=== PATIENT | female | born 1990 ===

== ENCOUNTER → 2020-08-28 | Outpatient (CLI) | payer OTHER | END | disposition home or self-care (01) | LOC: PRENATAL 08:44 | PROVIDERS: ATTEND Obstetrics & Gynecology Maternal & Fetal Medicine | DX: O35.0XX1 Maternal care for (suspected) central nervous system malformation in fetus, fetus 1 (principal); O35.3XX1 Maternal care for (suspected) damage to fetus from viral disease in mother, fetus 1; O98.512 Other viral diseases complicating pregnancy, second trimester; O99.212 Obesity complicating pregnancy, second trimester; O34.42 Maternal care for other abnormalities of cervix, second trimester; O99.342 Other mental disorders complicating pregnancy, second trimester; Z36.89 Encounter for other specified antenatal screening; Z3A.23 23 weeks gestation of pregnancy ==

== ENCOUNTER → 2020-11-07 | Outpatient (CLI) | payer OTHER | END | disposition home or self-care (01) | LOC: PRENATAL 16:04 | PROVIDERS: ATTEND Obstetrics & Gynecology Maternal & Fetal Medicine | DX: O26.843 Uterine size-date discrepancy, third trimester (principal); O35.0XX1 Maternal care for (suspected) central nervous system malformation in fetus, fetus 1; Z36.89 Encounter for other specified antenatal screening; Z3A.34 34 weeks gestation of pregnancy ==

== ENCOUNTER 2020-11-27 00:57 | Inpatient (IN) | payer OTHER ==
[~2020-11-27] VITALS: Ht 160 cm; Wt 102.1 kg
[2020-11-27] MEDS ORDERED: PRENATAL CAPLE1 EAC1 PO (01:07)
[2020-11-28] MEDS ORDERED: SERTRALINE HCL50 MG (08:17)
[2020-11-28] MEDS ORDERED: AZELEX30 GM (08:17)
== END 2020-11-28 10:19 | disposition home or self-care (01) | DRG 833 ==
LOC: OBS/DEL 00:57 → LDR 13:34 → OB/GYN 16:03
PROVIDERS: ADMIT Obstetrics & Gynecology; ATTEND Obstetrics & Gynecology
PROC: 4A1HXFZ Monitoring of Products of Conception, Cardiac Rhythm, External Approach (ICD-10-PCS; principal; 2020-11-27)
DX: O13.3 Gestational [pregnancy-induced] hypertension without significant proteinuria, third trimester (principal); Z3A.36 36 weeks gestation of pregnancy; Z20.822 Contact with and (suspected) exposure to COVID-19

== ENCOUNTER 2022-04-14 08:20 | Outpatient (CLI) | payer OTHER ==
[~2022-04-14 08:20] MED LIST: AZELEX30 GM; PRENATAL CAPLE1 EAC1 PO; SERTRALINE HCL50 MG
== END 2022-04-14 09:35 | disposition home or self-care (01) ==
LOC: PRENATAL 08:20
PROVIDERS: ATTEND Obstetrics & Gynecology Maternal & Fetal Medicine
DX: O36.80X0 Pregnancy with inconclusive fetal viability, not applicable or unspecified (principal); Z36.0 Encounter for antenatal screening for chromosomal anomalies; O34.219 Maternal care for unspecified type scar from previous cesarean delivery; Z3A.12 12 weeks gestation of pregnancy